=== PATIENT | male | born 1975 | race Caucasian/White ===

== ENCOUNTER 2016-11-08 07:28 | Emergency (ER) | payer OTHER ==
[2016-11-08 07:41] VITALS: BP 123/90
--- NOTE | 2016-11-08 07:58 | UC ---
Respiratory Complaint HPI - HPI Summary HPI Summary: The patient comes in today for: 1. Sinus congestion, laryngitis: Onset: 3 days ago. Palliative/provocative: Nothing makes symptoms better or worse. Quality: Pressure Region: Frontal and maxillary sinuses Severity: 4/10 Time: Constant. Associated symptoms: Rhinitis: light green Cough: Present, but only sometimes productive--green. Dyspnea: None. Chest pain: None. Fever: None. Lightheadedness: None. He works out on the treadmill going 1.75 miles for 30 minutes 3 times a week. He walks around at work all day. * - History of Current Complaint Chief Complaint: UCRespiratory Stated Complaint: COUGH,HEAD CONGESTION Time Seen by Provider: 11/08/16 07:52 Hx Obtained From: Patient - Allergies/Home Medications Allergies/Adverse Reactions: Allergies Allergy/AdvReac Type Severity Reaction Status Date / Time Clavulanic Acid AdvReac Nausea And Verified 11/08/16 07:35 Vomiting Home Medications: Home Medications Acetaminophen [Acetaminophen Extra Stren] 1,000 mg PO Q6H PRN 11/08/16 [History Confirmed 11/08/16] Fexofenadine (NF) [Anna 180 (NF)] 180 mg PO DAILY PRN 11/08/16 [History Confirmed 11/08/16] PMH/Surg Hx/FS Hx/Imm Hx Previously Healthy: No - Allergies. - Surgical History Surgical History: Yes Surgery Procedure, Year, and Place: Normal Testicular Biopsy, ~2001, [facility] in [place] - Family History Known Family History: Negative: Cardiac Disease, Hypertension - Social History Occupation: Employed Full-time Alcohol Use: None Substance Use Type: None Smoking Status (MU): Never Smoked Tobacco - Immunization History Most Recent Influenza Vaccination: Not the 2015/2016 Season Most Recent Tetanus Shot: ~2011 Review of Systems Constitutional: Negative Skin: Negative Eyes: Negative ENT: Nasal Discharge Respiratory: Other Cardiovascular: Negative Gastrointestinal: Negative Genitourinary: Negative All Other Systems Reviewed And Are Negative: Yes Physical Exam Triage Information Reviewed: Yes Appearance: Well-Appearing, No Pain Distress, Well-Nourished Vital Signs: Initial Vital Signs Temp 98.6 F 11/08/16 07:33 Pulse 54 11/08/16 07:33 Resp 16 11/08/16 07:33 BP 123/90 11/08/16 07:33 Pulse Ox 100 11/08/16 07:33 Vital Signs Reviewed: Yes Eyes: Positive: Conjunctiva Clear. Negative: Discharge ENT: Negative: Hearing grossly normal, Pharyngeal erythema, Nasal congestion, Nasal drainage, TM bulging, TM dull, TM red, Tonsillar swelling, Tonsillar exudate Dental: Negative: Gross Decay/Caries @, Dental Fracture @ Neck: Positive: Supple, Nontender, No Lymphadenopathy. Negative: Nuchal Rigidity Respiratory: Positive: Chest non-tender, Lungs clear, No respiratory distress, No accessory muscle use. Negative: Crackles, Wheezing Cardiovascular: Positive: RRR, No Murmur Abdomen Description: Positive: Nontender, No Organomegaly, Soft. Negative: Distended, Guarding Musculoskeletal: Positive: Strength Intact, ROM Intact, No Edema Neurological: Positive: Alert, Muscle Tone Normal Psychological: Positive: Age Appropriate Behavior, Consolable Skin: Negative: rashes, breakdown UC Diagnostic Evaluation - Laboratory O2 Sat by Pulse Oximetry: 100 Respiratory Course/Dx - Differential Dx/Diagnosis Differential Diagnosis/HQI/PQRI: Bronchitis, Laryngitis, Sinusitis Provider Diagnoses: Sinusitis Discharge - Discharge Plan Condition: Stable Disposition: HOME Patient Education Materials: Sinusitis (ED) Additional Instructions: Please see your primary care provider in about one to two weeks to see how well you are doing. If you get worse, please be seen sooner. If you don't have a primary care provider, please get one and until you do, you can come back to see us.
== END 2016-11-08 08:16 | disposition home or self-care (01) ==
LOC: UCCORT 07:28
DX: J32.9 Chronic sinusitis, unspecified (principal)
CPT/HCPCS: 99202; G0463

== ENCOUNTER 2017-04-29 08:34 | Emergency (ER) | payer OTHER ==
[2017-04-29 09:25] VITALS: BP 122/76
--- NOTE | 2017-04-29 14:31 | UC ---
Back Pain HPI - HPI Summary HPI Summary: pt p/w accompanied by with c/o back pain that started ysterday. pt reports that he was jumping up to shoot when he felt a spasm in his low back. the pain and tension progressed rapidly over the next few hours. as the pt was resting. currently the pt has severe pain whenever he tries to move, especially when changing positions(8-9/10). worst is going from supine(3/10) or seated to standing. pain is most alleviated by laying in the supine position. pt denies n/w/t, radiation, f/c/s/wt loss, bowel or bladder changes, saddle anesthesia. pt's adds that pt has been doing a lot of heavy renovation workk at home over the past week. that 3 days ago was lifting a toilet and felt a twinge in his low back. - History of Current Complaint Chief Complaint: UCBackPain Stated Complaint: LOWER BACK PAIN Time Seen by Provider: 04/29/17 09:56 Hx Obtained From: Patient, Family/Notereader Onset/Duration: Sudden Onset, Lasting Days, Still Present Timing: Constant Severity Initially: Moderate Severity Currently: Moderate Pain Intensity: 8 Pain Scale Used: 0-10 Numeric Back Pain: Is Discrete @ Character: Sharp, Aching Aggravating Factor(s): Movement Alleviating Factor(s): Rest, Position Associated Signs And Symptoms: Negative: Swelling, Redness, Bruising, Fever, Weakness, Numbness, Tingling, Abdominal Pain, Flank Pain, Bladder Incontinence, Bowel Incontinence, Weight Loss - Allergies/Home Medications Allergies/Adverse Reactions: Allergies Allergy/AdvReac Type Severity Reaction Status Date / Time Clavulanic Acid AdvReac Nausea And Verified 04/29/17 09:26 Vomiting PMH/Surg Hx/FS Hx/Imm Hx Previously Healthy: Yes - Surgical History Surgical History: Yes Surgery Procedure, Year, and Place: Normal Testicular Biopsy, ~2001, [facility] in [place] - Family History Known Family History: Negative: Cardiac Disease, Hypertension - Social History Occupation: Employed Full-time Lives: With Family Alcohol Use: None Substance Use Type: None Smoking Status (MU): Never Smoked Tobacco - Immunization History Most Recent Influenza Vaccination: Not the 2016/2016 Season Most Recent Tetanus Shot: ~2011 Review of Systems Constitutional: Negative Skin: Negative Respiratory: Negative Cardiovascular: Negative Gastrointestinal: Negative Genitourinary: Negative Motor: Negative Neurovascular: Negative Musculoskeletal: Myalgia Neurological: Negative Is Patient Immunocompromised?: No All Other Systems Reviewed And Are Negative: Yes Physical Exam Triage Information Reviewed: Yes Appearance: Well-Appearing, No Pain Distress, Obese Vital Signs: Initial Vital Signs Temp 99 F 04/29/17 09:14 Pulse 69 04/29/17 09:14 Resp 16 04/29/17 09:14 BP 122/76 04/29/17 09:14 Pulse Ox 100 04/29/17 09:14 Vital Signs Reviewed: Yes Eyes: Positive: Conjunctiva Clear. Negative: Discharge ENT: Positive: Hearing grossly normal. Negative: Muffled voice, Hoarse voice Neck: Positive: Supple, Nontender Respiratory: Positive: Lungs clear, Normal breath sounds, No respiratory distress, No accessory muscle use Cardiovascular: Positive: RRR, No Murmur Musculoskeletal: Positive: ROM Intact, No Edema, Other: - psoas tender point, paraspinal spasm bl Neurological: Positive: Alert, Muscle Tone Normal, Other: - strength sensation, reflexes intact bl Psychological: Positive: Age Appropriate Behavior Skin Exam: Normal Back Pain Course/Dx - Differential Dx/Diagnosis Differential Diagnosis/HQI/PQRI: Herniated Disc, Strain Provider Diagnoses: low back strain Discharge - Discharge Plan Condition: Stable Disposition: HOME Prescriptions: Cyclobenzaprine TAB* [Flexeril TAB*] 10 mg PO TID PRN #30 tab PRN Reason: Pain Patient Education Materials: Low Back Strain (ED) Referrals: Dior Conklin MD [Primary Care Provider] - 3 Days Additional Instructions: MUSCLE RELAXERS: Muscle relaxing medications are usually prescribed for acute muscle spasm or injury to the neck and back. They are often combined with antiinflammatory pain medication for increased relief. You may stop the muscle relaxer when the pain and stiffness have improved. Start the medication again if spasms recur. Muscle relaxers may cause drowsiness, especially with the first dose. Do not operate machinery or drive while under the effects of the medication. Most muscle relaxers last up to 24 hours. Do not combine the medication with alcohol. WE HAVE GIVEN YOU A REFERRAL TO PHYSICAL THERAPY YOU WOULD LIKELY BENEFIT FROM OSTEOPATHIC MANIPULATION. WE RECOMMEND THAT YOU FIND AN OSTEOPATHIC PHYSICIAN IN YOUR AREA WHO DOES LYMPHATIC, MYOFACIAL AND VISCERAL WORK Your blood pressure was elevated at the time of your visit. This is likely due to pain. You should follow up with a PCP for further evaluation in 2-4 weeks.
== END 2017-04-29 10:46 | disposition home or self-care (01) ==
LOC: UCCORT 08:34
DX: S39.012A Strain of muscle, fascia and tendon of lower back, initial encounter (principal); X50.0XXA Overexertion from strenuous movement or load, initial encounter; Y93.H3 Activity, building and construction; Y92.009 Unspecified place in unspecified non-institutional (private) residence as the place of occurrence of the external cause; E66.9 Obesity, unspecified
CPT/HCPCS: 99212; G0463